=== PATIENT | female | born 1995 | race Native Hawaiian/Other Pacific Islander ===

== ENCOUNTER 2022-10-19 15:26 | Emergency (ER) | payer OTHER, SELFPAY ==
[2022-10-19 15:41] VITALS: BP 143/83; PULSE 84; RESP 14; TEMP 36.8; O2SAT 98; BMI 26.4
[2022-10-19] MEDS: ONDANSETRON 4 MG/2 ML INJ IV (16:11)
[2022-10-19 16:19] LABS: Add Manual Diff / Slide Review NO; Basophils Absolute Auto 100 /uL (0-100); Basophils Percent Auto 0.8 % (0-2); Eosinophils Absolute Auto 200 /uL (0-450); Eosinophils Percent Auto 1.7 % (2-4); Hematocrit 46.5 % (36-46); Hemoglobin 15.8 g/dL (12.0-16.0); Lymphocytes Absolute Auto 2400 /uL (1100-4500); Lymphocytes Percent Auto 24.6 % (25-40); Mean Corpuscular HGB Conc 33.9 % (30-36); Mean Corpuscular Volume 88.5 fL (80-100); Monocytes Absolute Auto 400 /uL (0-900); Monocytes Percent Auto 4.4 % (3-14); Neutrophils Absolute Auto 6800 /uL (1500-7000); Neutrophils Percent Auto 68.5 % (50-75); Platelet Count 418 X10^3/uL (150-400); Red Blood Cell Count 5.25 X10^6/uL (4.0-5.2); White Blood Cell Count 9.9 X10^3/uL (4.5-11.0)
[2022-10-19 16:34] LABS: Alanine Aminotransferase 23 IU/L (<35); Albumin Globulin Ratio 1.2 (1.0-2.8); Alkaline Phosphatase 59 U/L (38-126); Aspartate Aminotransferase 36 IU/L (14-36); BUN Creatinine Ratio 11.9 (6-22); Bilirubin Total 1.2 mg/dL (0.2-1.3); Blood Urea Nitrogen 8 mg/dL (7-17); Calcium 10.1 mg/dL (8.4-10.2); Carbon Dioxide 28 mmol/L (22-32); Chloride 101 mmol/L (98-107); Estimated Glomerular Filt Rate > 60 mL/min (>60); Globulin 4.3 g/dL (1.7-4.1); Glucose 85 mg/dL (70-100); HEMOLYSIS < 15 (0-50); Lipase 227 U/L (23-300); Potassium 4.2 mmol/L (3.4-5.1); Sodium 140 mmol/L (137-145); Total Protein 9.3 g/dL (6.3-8.2)
[2022-10-19 20:07] VITALS: BP 137/85; PULSE 83; O2SAT 98
--- NOTE | 2022-10-19 21:09 | ED_ITS ---
HPI - Abdominal Pain General Chief Complaint: Abdominal Pain Stated Complaint: vomiting since last night Time Seen by Provider: 10/19/22 21:08 Source: patient Mode of arrival: Ambulatory Limitations: no limitations History of Present Illness HPI narrative: This is a 27-year-old healthy female with no reported medical issues, no prior surgeries. Patient presents with complaint nausea and vomiting that started las t night as well as left lower quadrant abdominal pain. Patient states has been persistent into today. She is tried crackers and not been able to keep anything down. She denies fevers or chills. No chest pain, no shortness of breath, no syncope. No back or flank pain. She states pain seems to be localized much more to the left. She states no bowel movements for 2 days but has been passing gas regularly. She denies dysuria, urgency or frequency. Patient states no vaginal bleeding or discharge. Patient states no similar episodes in the past. No known drug allergies. No tobacco, no active alcohol use, no illicit. Patient received a dose of Zofran here in the department which he states has been helpful. She defers anything for pain describes it as 5/10 currently. Related Data Allergies Allergy/AdvReac Type Severity Reaction Status Date / Time No Known Drug Allergies Allergy Verified 10/19/22 15:41 Review of Systems Review of Systems ROS Unobtainable: All systems reviewed & are unremarkable except as noted in HPI and below Patient History Social History Smoking Status: Unknown if ever smoked Smoking Status: Unknown if ever smoked alcohol intake frequency: holidays/special occasions only Substance Use Type: does not use Exam Narrative Exam Narrative: GENERAL: Alert and oriented x three, female in mild distress. HEENT: Head normocephalic, atraumatic, EOMI, pupils reactive, face symmetric, moist mucous membranes NECK: Supple, full range of motion CARDIOVASCULAR: Regular rate and rhythm without murmurs, rubs or gallops. RESPIRATORY: Breath sounds equal bilaterally, no wheezes rales or rhonchi. ABDOMEN: Soft, posterior left lower quadrant tenderness. Normoactive bowel sounds all 4 quadrants. No guarding or rebound, rigidity, no mass : No CVA tenderness EXTREMITIES: Normal range of motion, no clubbing or edema. Neurovascularly intact NEUROLOGICAL: Cranial nerves II through XII grossly intact. Moving all extremities SKIN: Warm, dry, no petechiae, no rashes or lesions. Initial Vital Signs Initial Vital Signs: Vital Signs Temperature 98.2 F 10/19/22 15:41 Pulse Rate 84 10/19/22 15:41 Respiratory Rate 14 10/19/22 15:41 Blood Pressure 143/83 H 10/19/22 15:41 Pulse Oximetry 98 10/19/22 15:41 Oxygen Delivery Method Room Air 10/19/22 15:41 Course Orders Ordered: Discontinued Medications Ondansetron HCl (Ondansetron 4 Mg/2 Ml Inj) 4 mg IV NOW PRN PRN Reason: Nausea And Vomiting Last Admin: 10/19/22 16:11 Dose: 4 mg Documented By: CHRIS Ondansetron HCl (Ondansetron 4 Mg Odt Prepack) 1 bottle MISC SEEINSTR ONE Stop: 10/19/22 21:49 Last Admin: 10/19/22 21:57 Dose: 1 bottle Documented By: HUGO Vital Signs Vital signs: Vital Signs - 8 hr 10/19/22 15:41 10/19/22 20:07 Temperature 98.2 F Pulse Rate 84 83 Respiratory Rate 14 Blood Pressure 143/83 H 137/85 Pulse Oximetry 98 98 Oxygen Delivery Method Room Air Room Air MDM - Abdominal Pain Lab Data 10/19/22 16:02 10/19/22 16:02 Labs: Lab Results 10/19/22 10/19/22 Range/Units 16:02 16:02 WBC 9.9 (4.5-11.0) X10^3/uL RBC 5.25 H (4.0-5.2) X10^6/uL Hgb 15.8 (12.0-16.0) g/dL Hct 46.5 H (36-46) % MCV 88.5 (80-100) fL MCH 30.0 (26-34) PG MCHC 33.9 (30-36) % RDW 13.0 (11.6-14.8) % Plt Count 418 H (150-400) X10^3/uL Neut % (Auto) 68.5 (50-75) % Lymph % (Auto) 24.6 L (25-40) % Meigs % (Auto) 4.4 (3-14) % Eos % (Auto) 1.7 L (2-4) % Baso % (Auto) 0.8 (0-2) % Neut # (Auto) 6800 (4638-0938) /uL Lymph # (Auto) 2400 (6554-9577) /uL Meigs # (Auto) 400 (0-900) /uL Eos # (Auto) 200 (0-450) /uL Baso # (Auto) 100 (0-100) /uL Sodium 140 (137-145) mmol/L Potassium 4.2 (3.4-5.1) mmol/L Chloride 101 (98-107) mmol/L Carbon Dioxide 28 (22-32) mmol/L BUN 8 (7-17) mg/dL Creatinine 0.67 (0.52-1.04) mg/dL Estimated GFR > 60 (>60) mL/min BUN/Creatinine Ratio 11.9 (6-22) Glucose 85 (70-100) mg/dL Calcium 10.1 (8.4-10.2) mg/dL Total Bilirubin 1.2 (0.2-1.3) mg/dL AST 36 (14-36) IU/L ALT 23 (<35) IU/L Alkaline Phosphatase 59 (38-126) U/L Total Protein 9.3 H (6.3-8.2) g/dL Albumin 5.0 (3.5-5.0) g/dL Globulin 4.3 H (1.7-4.1) g/dL Albumin/Globulin Ratio 1.2 (1.0-2.8) Lipase 227 (23-300) U/L Point of care testing: Point of Care Testing Test Results Negative Urine Dip Bedside Urine Glucose Negative Bedside Urine Bilirubin - Negative Bedside Urine Ketone - Negative Urine Specific [place] 1.010 Bedside Urine Occult Blood - Negative Bedside Urine pH 7.5 Bedside Urine Protein - Negative Bedside Urine Urobilinogen - Negative Bedside Urine Nitrite - Negative Bedside Urine Leukocytes - Negative Esterase MDM Narrative Medical decision making narrative: Patient had labs including CBC shows hematocrit of 46 platelets of 418, white count of 9.9, low lymphocytes. Sodium is 140, potassium, electrolytes, renal function and LFTs are all normal protein 9.3 with a globulin of 4.3 lipase of 227. Point of care urine is negative for and negative for infection. Patient is tender in the left lower quadrant discussed potentials point of care urine do not show any signs , kidney stone or infection, no flank pain on examination. Patient is tender in left lower quadrant could have diverticulitis or colitis seems less likely based on age. Discussed ovarian cyst or torsion. Patient's pain is fairly well-controlled she defers anything for pain currently. After discussion about further imaging patient elects to return home with prepack for Zofran and watchful waiting. Discussed she needs return for fevers, persistent vomiting worsening abdominal or persistent pain that is was not resolving or other new or concerning changes. Discharge Plan Departure Patient Disposition: Home Clinical Impression: Vomiting, Abdominal pain Instructions: DI for Vomiting -- Adult Activity Restrictions/Additional Instructions: Your labs today are overall reassuring, as discussed we did not do any additional imaging today if you are having persistent or worsening symptoms please return for further workup. You can take Zofran 1 tablet every 6 hours as needed for nausea. You can take Tylenol up to a 1000 mg every 6 hours for pain and/or ibuprofen up to 600 mg every 6 hours as needed for pain. Please return for fevers, persistent or worsening abdominal pain, persistent vomiting, black or bloody stools, if you are not having any stools or f latus/guarding, new back or flank pain or other new or concerning changes. Stand Alone Forms: Patient Portal/API, Work Release Note
[2022-10-19] MEDS: ONDANSETRON 4 MG ODT PREPACK 1 BOTTLE MISC (21:57)
[2022-10-19 22:00] VITALS: BP 127/77; PULSE 78; RESP 18; O2SAT 97
== END 2022-10-19 22:00 | disposition home or self-care (01) ==
PROVIDERS: Emergency Medicine; Emergency Provider Emergency Medicine
DX: R10.32 Left lower quadrant pain (principal); R11.2 Nausea with vomiting, unspecified
CPT/HCPCS: 36415; 80053; 81003; 81025; 83690; 85025; 96374; 99284; J2405